=== PATIENT | male | born 1965 | race Caucasian/White ===

== ENCOUNTER → 2019-07-01 | Outpatient (CLI) | payer BC ==
[~2019-07-01] MED LIST: ASPIRIN81 MG PO; DAILY VITAMIN1 EAC3 PO; TRICOR145 MG PO; VITAMIN E PO
--- NOTE | 2019-07-02 08:49 | Diagnostic Imaging Report ---
Left knee MRI without contrast. History: Knee pain. Internal drainage. Prior surgery. Decreased range of motion Comparison: None. Technique: Multiplanar multi-sequence MRI of the knee without contrast. Findings: Medial compartment: Complex tear involving the posterior horn and body segments of the medial meniscus with lobulated septated posterior and peripheral perimeniscal cysts. The medial compartmental articular cartilage surfaces are thinned with regions of fraying and fissuring. Mild underlying bone marrow edema. The medial collateral ligament complex is intact. Lateral compartment: No meniscal tear or cartilage abnormality. The LCL complex is normal. Intercondylar notch: The ACL and PCL are intact. Patellofemoral compartment: No chondromalacia or patellar dislocation. Extensor mechanism: The quadriceps and patellar tendons are normal. Other findings: There is a joint effusion and synovitis. There is no acute fracture, subluxation or avascular necrosis. IMPRESSION: Complex tear involving the posterior horn and body segments of the medial meniscus with lobulated septated posterior and peripheral perimeniscal cysts. 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 Signed by: Dr. Damian Estrada M.D. on 07/02/2019 8:46 AM
== END ==
LOC: MRI 14:26
PROVIDERS: ATTEND Specialist
DX: M23.92 Unspecified internal derangement of left knee (principal)